=== PATIENT | female | born 1945 | race Caucasian/White ===

== ENCOUNTER 2017-06-08 16:53 | Inpatient (IN) | payer OTHER ==
--- NOTE | 2017-06-08 17:00 | PDOC ---
Rapid Medical Evaluation Chief Complaint: Rectal Bleed Time Seen by Provider: 06/08/17 17:00 Medical Evaluation: Allergies Allergy/AdvReac Type Severity Reaction Status Date / Time ciprofloxacin [From Cipro] Allergy Rash Verified 06/08/17 16:57 ciprofloxacin HCl Allergy Rash Verified 06/08/17 16:57 [From Cipro] 06/08/17 17:02 The patient presents with a chief complaint of: rectal bleeding, left abd pain I have performed a brief in-person evaluation of this patient. Pertinent physical exam findings: vss, stable I have ordered the following: labs, npo The patient will proceed to the ED for further evaluation. Discharge Disposition - Referrals Referrals: Antwan Kearns MD [Primary Care Provider] - - Patient Instructions - Post Discharge Activity
[2017-06-08 17:30] LABS: BASO % 0.2 % (0-2.0); EOS % 0.3 % (0-4.5); HEMATOCRIT 43.2 % (32.4-45.2); HEMOGLOBIN 15.1 GM/dL (10.7-15.3); LYMPH % 14.7 % (8-40); MCH 33.6 pg (25.7-33.7); MCHC 34.9 g/dl (32.0-36.0); MEAN CELL VOLUME 96.4 fl (80-96); MEAN PLT VOLUME 9.4 fl (7.5-11.1); MONO % 5.5 % (3.8-10.2); NEUT % 79.3 % (42.8-82.8); PLATELET COUNT 186 K/MM3 (134-434); RBC 4.48 M/mm3 (3.60-5.2); RDW 13.1 % (11.6-15.6); RETICULOCYTES 1.92 % (0.5-1.5); WHITE BLOOD COUNT 11.4 K/mm3 (4.0-10.0)
[2017-06-08 17:52] LABS: INR 1.03 (0.82-1.09); PROTHROMBIN TIME (PATIENT) 11.6 SEC (9.98-11.88)
[2017-06-08 18:07] LABS: ALBUMIN 4.3 g/dl (3.4-5.0); ANION GAP 8 (8-16); BILIRUBIN,TOTAL 0.3 mg/dL (0.2-1.0); BLOOD UREA NITROGEN 17 mg/dL (7-18); CHLORIDE 105 mmol/L (98-107); CO2 23 mmol/L (21-32); CREATININE 0.6 mg/dL (0.55-1.02); GLUCOSE,RANDOM 132 mg/dL (74-106); POTASSIUM 4.2 mmol/L (3.5-5.1); SGOT/AST 23 U/L (15-37); SGPT/ALT 33 U/L (12-78); SODIUM 136 mmol/L (136-145); TOT PROT 7.2 g/dl (6.4-8.2)
[2017-06-08 18:08] LABS: ALK PHOS 43 U/L (45-117)
[2017-06-08] MEDS ORDERED: SODIUM CHLORIDE 1,000 ML IV STA (19:29)
--- NOTE | 2017-06-08 19:42 | PDOC ---
History of Present Illness - General History Source: Patient, Family Exam Limitations: No Limitations - History of Present Illness Initial Comments: 06/08/17 19:55 The patient is a 71 year old female, with a significant past medical history of HTN, HLD, DM, Diverticulosis, cardiac disease who presents to the emergency department with bloody diarrhea today. Patient reports 6 episodes of bright red diarrhea this morning with intermittent LUQ abdominal pain. Patient's pain is 10 /10 in severity, radiating to midline of her abdomen. Patient notes she has been taking Naprosyn for neck pain for the past 2 days. Patient was sent to the ED by GI for further evaluation. Daughter at bedside reports patient has no hx of rectal bleeding, last colonoscopy was two years ago and reportedly negative. Patient denies recent antibiotic use. Patient denies chest pain, headache or dizziness. Patient denies fever, chills, nausea, vomit and constipation. Patient denies dysuria, frequency, urgency or hematuria. Patient denies sick contacts or recent travel. Allergies: ciprofloxacin Past surgical history: C section x2, Spinal surgery Social history: Current everyday smoker PCP: Dr. Antwan Kearns GI: Pradip <Shari Mccollum - Last Filed: 06/08/17 21:51> - General History Source: Patient, Family Exam Limitations: No Limitations <Kilo Holly - Last Filed: 06/08/17 21:55> - General Chief Complaint: Rectal Bleed Stated Complaint: BLOOD IN STOOL Time Seen by Provider: 06/08/17 17:00 Past History <Shari Mccollum - Last Filed: 06/08/17 21:51> - Past Medical History Anemia: No Asthma: No Cancer: No Cardiac Disorders: No CVA: No COPD: No CHF: No Dementia: No Diabetes: Yes GI Disorders: No Disorders: No HTN: Yes Hypercholesterolemia: Yes Liver Disease: No Seizures: No Thyroid Disease: No - Surgical History Abdominal Surgery: No Appendectomy: No Cardiac Surgery: No Cholecystectomy: No Lung Surgery: No Neurologic Surgery: No Orthopedic Surgery: Yes (RT SHOULDER ARTHROSCOPY 2004) - Immunization History Immunization Up to Date: Yes - Suicide/Smoking/Psychosocial Hx Smoking Status: Yes Smoking History: Current every day smoker Number of Cigarettes Smoked Daily: 20 Information on smoking cessation initiated: No Hx Alcohol Use: No Drug/Substance Use Hx: No Substance Use Type: None Hx Substance Use Treatment: No <Kilo Holly - Last Filed: 06/08/17 21:55> - Past Medical History Allergies/Adverse Reactions: Allergies Allergy/AdvReac Type Severity Reaction Status Date / Time ciprofloxacin [From Cipro] Allergy Rash Verified 06/08/17 16:57 ciprofloxacin HCl Allergy Rash Verified 06/08/17 16:57 [From Cipro] Home Medications: Ambulatory Orders Albuterol Sulfate Inhaler - [Ventolin HFA Inhaler -] 2 inh IH Q6H #1 inh Lisinopril 10 mg PO HS 10/27/14 Metformin HCl [Glucophage] 500 mg PO BID 10/27/14 Multivitamin [Poly-Vitamin] 1 each PO DAILY 10/27/14 Nebivolol [Bystolic -] 5 mg PO HS 10/27/14 [place]-3 Fatty Acids [[place]-3] 1,000 mg PO DAILY 10/27/14 Ranolazine [Ranexa] 500 mg PO BID 10/27/14 Simvastatin 10 mg PO DAILY 10/27/14 Acetaminophen [Tylenol] 650 mg PO Q6H PRN 01/09/15 Celecoxib [CeleBREX -] 200 mg PO DAILY #14 capsule 01/22/15 Pregabalin [Lyrica] 25 mg PO DAILY #14 capsule 01/22/15 Naproxen [Naprosyn] 500 mg PO ASDIR 06/08/17 Review of Systems - Review of Systems Able to Perform ROS?: Yes Comments:: 06/08/17 19:59 GENERAL/CONSTITUTIONAL: No fever or chills. No weakness. HEAD, EYES, EARS, NOSE AND THROAT: No change in vision. No ear pain or discharge. No sore throat. CARDIOVASCULAR: No chest pain or shortness of breath. RESPIRATORY: No cough, wheezing, or hemoptysis. GASTROINTESTINAL: + bloody diarrhea. + abdominal pain. No nausea, vomiting or constipation. GENITOURINARY: No dysuria, frequency, or change in urination. MUSCULOSKELETAL: No joint or muscle swelling or pain. No neck or back pain. SKIN: No rash NEUROLOGIC: No headache, vertigo, loss of consciousness, or change in strength/ sensation. ENDOCRINE: No increased thirst. No abnormal weight change. HEMATOLOGIC/LYMPHATIC: No anemia, easy bleeding, or history of blood clots. ALLERGIC/IMMUNOLOGIC: No hives or skin allergy. <Shari Mccollum - Last Filed: 06/08/17 21:51> *Physical Exam - Vital Signs Last Vital Signs Temp Pulse Resp BP Pulse Ox 97.9 F 60 18 142/60 98 06/08/17 16:58 06/08/17 16:58 06/08/17 16:58 06/08/17 16:58 06/08/17 16:58 - Physical Exam Comments: 06/08/17 20:00 GENERAL: Awake, alert, and fully oriented, in no acute distress HEAD: No signs of trauma EYES: PERRLA, EOMI, sclera anicteric, conjunctiva clear ENT: Auricles normal inspection, hearing grossly normal, nares patent, oropharynx clear without exudates. Moist mucosa NECK: Normal ROM, supple, no lymphadenopathy, JVD, or masses LUNGS: Breath sounds equal, clear to auscultation bilaterally. No wheezes, and no crackles HEART: Regular rate and rhythm, normal S1 and S2, no murmurs, rubs or gallops ABDOMEN: +LLQ and L mid tenderness to palpation. Soft, nontender, normoactive bowel sounds. No guarding, no rebound. No masses EXTREMITIES: Normal range of motion, no edema. No clubbing or cyanosis. No cords, erythema, or tenderness NEUROLOGICAL: Cranial nerves II through XII grossly intact. Normal speech, normal gait SKIN: Warm, Dry, normal turgor, no rashes or lesions noted. RECTAL: +Small amounts of red blood on glove. No rectal tenderness.No external hemorrhoids No fissures or tears. <Shari Mccollum - Last Filed: 06/08/17 21:51> - Vital Signs Last Vital Signs Temp Pulse Resp BP Pulse Ox 97.9 F 60 18 142/60 98 06/08/17 16:58 06/08/17 16:58 06/08/17 16:58 06/08/17 16:58 06/08/17 16:58 <Kilo Holly - Last Filed: 06/08/17 21:55> ED Treatment Course - LABORATORY CBC & Chemistry Diagram: 06/08/17 17:18 06/08/17 17:18 - ADDITIONAL ORDERS Additional order review: Laboratory Results 06/08/17 06/08/17 06/08/17 19:30 17:18 17:18 PT with INR INR Sodium 136 Potassium 4.2 Chloride 105 Carbon Dioxide 23 Anion Gap 8 BUN 17 Creatinine 0.6 Creat Clearance w eGFR > 60 Random Glucose 132 H Calcium 9.0 Total Bilirubin 0.3 D AST 23 ALT 33 Alkaline Phosphatase 43 L Total Protein 7.2 Albumin 4.3 Stool Occult Blood Positive Blood Type AB POSITIVE Antibody Screen Negative 06/08/17 17:18 PT with INR 11.60 INR 1.03 Sodium Potassium Chloride Carbon Dioxide Anion Gap BUN Creatinine Creat Clearance w eGFR Random Glucose Calcium Total Bilirubin AST ALT Alkaline Phosphatase Total Protein Albumin Stool Occult Blood Blood Type Antibody Screen 06/08/17 17:18 RBC 4.48 MCV 96.4 H MCHC 34.9 RDW 13.1 MPV 9.4 Neutrophils % 79.3 D Lymphocytes % 14.7 D Monocytes % 5.5 Eosinophils % 0.3 Basophils % 0.2 - Medications Given in the ED: ED Medications Discontinued Medications Generic Name Dose Route Start Last Admin Trade Name Freq PRN Reason Stop Dose Admin Sodium Chloride 1,000 mls @ 1,000 mls/hr 06/08/17 19:29 06/08/17 19:37 Normal Saline - IV 06/08/17 20:28 1,000 mls/hr ASDIR STA Administration <Shari Mccollum - Last Filed: 06/08/17 21:51> - LABORATORY CBC & Chemistry Diagram: 06/08/17 17:18 06/08/17 17:18 - ADDITIONAL ORDERS Additional order review: Laboratory Results 06/08/17 06/08/17 06/08/17 17:18 17:18 17:18 PT with INR 11.60 INR 1.03 Sodium 136 Potassium 4.2 Chloride 105 Carbon Dioxide 23 Anion Gap 8 BUN 17 Creatinine 0.6 Creat Clearance w eGFR > 60 Random Glucose 132 H Calcium 9.0 Total Bilirubin 0.3 D AST 23 ALT 33 Alkaline Phosphatase 43 L Total Protein 7.2 Albumin 4.3 Blood Type AB POSITIVE Antibody Screen Negative 06/08/17 17:18 RBC 4.48 MCV 96.4 H MCHC 34.9 RDW 13.1 MPV 9.4 Neutrophils % 79.3 D Lymphocytes % 14.7 D Monocytes % 5.5 Eosinophils % 0.3 Basophils % 0.2 - RADIOLOGY Radiology Studies Ordered: Category Date Time Status ABDOMEN & PELVIS CT WITH CONTR [CT] Stat CT Scan 06/08/17 19:29 Ordered <Kilo Holly - Last Filed: 06/08/17 21:55> Medical Decision Making - Medical Decision Making 06/08/17 19:41 A portion of this note was documented by scribe services under my direction. I have reviewed the details of the note, within reason, and agree with the documentation with the following case summary and management plan written by me. Patient treated in the ED. Nursing notes are reviewed and incorporated into the medical decision-making. Vital signs reviewed. Peripheral IV access obtained by the nurse, laboratory studies are drawn and sent, reviewed and interpreted by myself. Vital Signs Temp Pulse Resp BP Pulse Ox 97.9 F 60 18 142/60 98 06/08/17 16:58 06/08/17 16:58 06/08/17 16:58 06/08/17 16:58 06/08/17 16:58 71 year old female with past medical history of hypertension, diabetes, hyperlipidemia, reported heart disease presents with bloody stools. The patient reports since yesterday developing intermittent left-sided abdominal pain is crampy in nature but without any fevers, nausea or vomiting. Patient does report taking intermittent NSAIDs for her neck pain. Does not think she had taken more than usual. Today, noticed 6 episodes of blood in her stools. First- time episode. Patient had her last colonoscopy 2 years ago reportedly negative. 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 Moseley who directed patient into the emergency department for further evaluation. Differential includes bleeding diverticula, colitis, infectious versus inflammatory, less likely intussusception, abdominal mass. We'll obtain labs, stool culture and occult, abdominal/pelvis CT and reassess. 06/08/17 21:52 CBC, BMP 06/08/17 17:18 06/08/17 17:18 CMP Sodium 136 mmol/L (136-145) 06/08/17 17:18 Potassium 4.2 mmol/L (3.5-5.1) 06/08/17 17:18 Chloride 105 mmol/L (98-107) 06/08/17 17:18 Carbon Dioxide 23 mmol/L (21-32) 06/08/17 17:18 Anion Gap 8 (8-16) 06/08/17 17:18 BUN 17 mg/dL (7-18) 06/08/17 17:18 Creatinine 0.6 mg/dL (0.55-1.02) 06/08/17 17:18 Creat Clearance w eGFR > 60 (>60) 06/08/17 17:18 Random Glucose 132 mg/dL (74-106) H 06/08/17 17:18 Calcium 9.0 mg/dL (8.5-10.1) 06/08/17 17:18 Total Bilirubin 0.3 mg/dL (0.2-1.0) D 06/08/17 17:18 AST 23 U/L (15-37) 06/08/17 17:18 ALT 33 U/L (12-78) 06/08/17 17:18 Alkaline Phosphatase 43 U/L (45-117) L 06/08/17 17:18 Total Protein 7.2 g/dl (6.4-8.2) 06/08/17 17:18 Albumin 4.3 g/dl (3.4-5.0) 06/08/17 17:18 Stool occult positive. Given the multiple medical problems, will admit patient. Case discussed with [place] hospitalist, case admitted to telemetry admission. Case discussed in detail with admitting physician including history, physical exam and ancillary studies. Admitting physician has assumed care for the patient, will follow all pending diagnostics and will complete the evaluation and treatment. <Kilo Holly - Last Filed: 06/08/17 21:55> *DC/Admit/Observation/Transfer - Attestations Scribe Attestion: 06/08/17 20:00 Documentation prepared by Shari Mccollum, acting as medical supply technician for Kilo Holly MD, <Shari Mccollum - Last Filed: 06/08/17 21:51> - Discharge Dispostion Admit: Yes <Kilo Holly - Last Filed: 06/08/17 21:55> Diagnosis at time of Disposition: Colitis - Discharge Dispostion Condition at time of disposition: Stable - Referrals Referrals: Antwan Kearns MD [Primary Care Provider] - - Patient Instructions - Post Discharge Activity
[2017-06-08] MEDS ORDERED: LACTATED RINGERS SOLUTION 1,000 ML/1,000 ML INFUS.BAG IV SCH (19:45)
--- NOTE | 2017-06-08 22:12 | PN ---
Teaching Attending Note Name of Resident: Diamond Fuller ATTENDING PHYSICIAN STATEMENT I saw and evaluated the patient. I reviewed the resident's note and discussed the case with the resident. I agree with the resident's findings and plan as documented. SUBJECTIVE: 71 yo F with pmhx. of HTN, HLD, DM, Diverticulosis, Cardiac disease who presents with bloody diarrhea. States he has had 6 episodes of BR Bloody diarrhea. Also with LLQ abdominal pain. States pain is 10/10 and goes to her epsigastic area. Notes also she has been taking Naproxen for Neck pain for 48 hrs. As per daughter last [place] was 2 yeas ago, which was negative, OBJECTIVE: Physical: VS: Vital Signs Period Temp Pulse Resp BP Sys/[place] Pulse Ox Last 24 Hr 97.9 F 60 18 142/60 98 GEN: NAD, Resting in bed, AA0X3 HEENT: NCAT, PERRL, Throat without erythema or exudates CARD: RRR S1, S2 RESP: CTAB ABD: BSx4, NTD to palpation, Soft, Non-Distended EXT: - C/C/e CBCD WBC 11.4 K/mm3 (4.0-10.0) H 06/08/17 17:18 RBC 4.48 M/mm3 (3.60-5.2) 06/08/17 17:18 Hgb 15.1 GM/dL (10.7-15.3) 06/08/17 17:18 Hct 43.2 % (32.4-45.2) 06/08/17 17:18 MCV 96.4 fl (80-96) H 06/08/17 17:18 MCHC 34.9 g/dl (32.0-36.0) 06/08/17 17:18 RDW 13.1 % (11.6-15.6) 06/08/17 17:18 Plt Count 186 K/MM3 (134-434) 06/08/17 17:18 MPV 9.4 fl (7.5-11.1) 06/08/17 17:18 CMP Sodium 136 mmol/L (136-145) 06/08/17 17:18 Potassium 4.2 mmol/L (3.5-5.1) 06/08/17 17:18 Chloride 105 mmol/L (98-107) 06/08/17 17:18 Carbon Dioxide 23 mmol/L (21-32) 06/08/17 17:18 Anion Gap 8 (8-16) 06/08/17 17:18 BUN 17 mg/dL (7-18) 06/08/17 17:18 Creatinine 0.6 mg/dL (0.55-1.02) 06/08/17 17:18 Creat Clearance w eGFR > 60 (>60) 06/08/17 17:18 Random Glucose 132 mg/dL (74-106) H 06/08/17 17:18 Calcium 9.0 mg/dL (8.5-10.1) 06/08/17 17:18 Total Bilirubin 0.3 mg/dL (0.2-1.0) D 06/08/17 17:18 AST 23 U/L (15-37) 06/08/17 17:18 ALT 33 U/L (12-78) 06/08/17 17:18 Alkaline Phosphatase 43 U/L (45-117) L 06/08/17 17:18 Total Protein 7.2 g/dl (6.4-8.2) 06/08/17 17:18 Albumin 4.3 g/dl (3.4-5.0) 06/08/17 17:18 CXR: PENDING EKG: PENDING CTAP: A non-specific infectious vs. inflammatiry Colitis extending from hepatic flexure to distal descending colon, Stool Occult: + Ambulatory Orders Albuterol Sulfate Inhaler - [Ventolin HFA Inhaler -] 2 inh IH Q6H #1 inh Lisinopril 10 mg PO HS 10/27/14 Metformin HCl [Glucophage] 500 mg PO BID 10/27/14 Multivitamin [Poly-Vitamin] 1 each PO DAILY 10/27/14 Nebivolol [Bystolic -] 5 mg PO HS 10/27/14 [place]-3 Fatty Acids [[place]-3] 1,000 mg PO DAILY 10/27/14 Ranolazine [Ranexa] 500 mg PO BID 10/27/14 Simvastatin 10 mg PO DAILY 10/27/14 Acetaminophen [Tylenol] 650 mg PO Q6H PRN 01/09/15 Celecoxib [CeleBREX -] 200 mg PO DAILY #14 capsule 01/22/15 Pregabalin [Lyrica] 25 mg PO DAILY #14 capsule 01/22/15 Naproxen [Naprosyn] 500 mg PO ASDIR 06/08/17 ASSESSMENT AND PLAN: 71 yo F with pmhx. of HTN, HLD, DM, Diverticulosis, Cardiac disease who presents with bloody diarrhea, being admitted for Colitis. 1.) Colitis/LGIB - Type & Screen - CBC Q 8 - Transfuse Hgb<7 - Coags - Infectious/Inflammatory - Would hold off abx. - Stool Cx - IVF - NPO - GI Consult - Hold Celebrex/Naproxen 2.) HTN - Hold home meds for now 3.) DM - FS - D5 1/2 NS - RAISS 4.) CAD? - EKG and CXR - C/W Ranexa 5.) Dvt Ppx - SCDS Place in Med- Tele
[2017-06-08] MEDS ORDERED: ACETAMINOPHEN 1000 MG/100 ML VIAL (NON FORMULARY) IVPB ONE (22:19)
[2017-06-08] MEDS ORDERED: morphine CARPU-JECT 2 MG/1 ML DISP.SYRIN IVPUSH ONE (22:19)
[2017-06-08] MEDS ORDERED: ACETAMINOPHEN INJECTION 100 ML IVPB ONE (22:55)
[2017-06-08] MEDS ORDERED: MORPHINE SULFATE 10 MG/1 ML *VIAL ONE (22:55)
--- NOTE | 2017-06-08 23:12 | HP ---
CHIEF COMPLAINT: bloody diarrhea x 1 day PCP: Dr. Antwan Kearns HISTORY OF PRESENT ILLNESS: 71 y/o F with PMH HTN, HLD, DM, diverticulosis, CAD (has never had a CABG, without stents), on baby aspirin 81mg qd, who presents to the ED c/o bloody diarrhea over the past day. As per pt, this morning, she noticed BRB mixed in with brown stool when she used the bathroom. Throughout the course of the day, she noticed an increase in blood mixed in with her stool. Her diarrhea was a/w LLQ pain that was 8/10, and initially constant. Currently it is intermittent, without radiation. Pt's pain was mildly alleviated with a tablet [place] from [place], however the blood persisted. Pt does not endorse any significant weight or diet changes. She eats balanced meals that include "many fruits and vegetables," however she does note that she may have eaten different foods during . At this time, she was also around many young relatives. Pt has used naproxen over the past two days for arthritic neck pain. She states that she did not take it with food, as she was supposed to, and noticed the blood in her BM afterward. Pt also endorses subjective chills. She denies TATE, fever, SOB, N/V, recent travel, chest pain or pressure, or changes in urinary function. She follows with Dr. Moseley routinely, and had a colonoscopy last done two years ago which was WNL. Pt is allergic to ciprofloxacin. ER course was notable for: (1) LR fluids (2) Morphine 2mg IVP x 1 (3) IV Tylenol 1g x 1 Recent Travel: none PAST MEDICAL HISTORY: as above PAST SURGICAL HISTORY: x 2, R shoulder arthroscopy - 2004, R knee surgery, three discs - neck Social History: Smoking: +current active smoker. smokes 1/2 pack ppd, does not know for how many years Alcohol: socially Drugs: denies Family History: sister- colon CA, brother- stomach CA, mother and father- DM Allergies ciprofloxacin [From Cipro] Allergy (Verified 06/08/17 16:57) Rash, edema, pruritis ciprofloxacin HCl [From Cipro] Allergy (Verified 06/08/17 16:57) Rash HOME MEDICATIONS: Home Medications Medication Instructions Recorded Albuterol Sulfate Inhaler - 2 inh IH Q6H #1 inh 10/27/14 [Ventolin HFA Inhaler -] Lisinopril 10 mg PO HS 10/27/14 Metformin HCl [Glucophage] 500 mg PO BID 10/27/14 Multivitamin [Poly-Vitamin] 1 each PO DAILY 10/27/14 Nebivolol [Bystolic -] 5 mg PO HS 10/27/14 [place]-3 Fatty Acids [[place]-3] 1,000 mg PO DAILY 10/27/14 Ranolazine [Ranexa] 500 mg PO BID 10/27/14 Simvastatin 10 mg PO DAILY 10/27/14 Acetaminophen [Tylenol] 650 mg PO Q6H PRN 01/09/15 Celecoxib [CeleBREX -] 200 mg PO DAILY #14 capsule 01/22/15 Pregabalin [Lyrica] 25 mg PO DAILY #14 capsule 01/22/15 Naproxen [Naprosyn] 500 mg PO ASDIR 06/08/17 REVIEW OF SYSTEMS CONSTITUTIONAL: +subjective chills Absent: fever, diaphoresis, generalized weakness, malaise, loss of appetite, weight change HEENT: Absent: rhinorrhea, nasal congestion, throat pain, throat swelling, difficulty swallowing, mouth swelling, ear pain, eye pain, visual changes CARDIOVASCULAR: Absent: chest pain, syncope, palpitations, irregular heart rate, lightheadedness , peripheral edema RESPIRATORY: Absent: cough, shortness of breath, dyspnea with exertion, orthopnea, wheezing, stridor, hemoptysis GASTROINTESTINAL: +abdominal pain, diarrhea, melena Absent: abdominal distension, nausea, vomiting, constipation, hematochezia GENITOURINARY: Absent: dysuria, frequency, urgency, hesitancy, hematuria, flank pain, genital pain MUSCULOSKELETAL: Absent: myalgia, arthralgia, joint swelling, back pain, neck pain SKIN: Absent: rash, itching, pallor HEMATOLOGIC/IMMUNOLOGIC: Absent: easy bleeding, easy bruising, lymphadenopathy, frequent infections ENDOCRINE: Absent: unexplained weight gain, unexplained weight loss, heat intolerance, cold intolerance NEUROLOGIC: Absent: headache, focal weakness or paresthesias, dizziness, unsteady gait, seizure, mental status changes, bladder or bowel incontinence PSYCHIATRIC: Absent: anxiety, depression, suicidal or homicidal ideation, hallucinations. PHYSICAL EXAMINATION Vital Signs - 24 hr 06/08/17 16:58 Temperature 97.9 F Pulse Rate 60 Respiratory 18 Rate Blood Pressure 142/60 O2 Sat by Pulse 98 Oximetry (%) GENERAL: Resting comfortably. Awake, alert, and fully oriented, in no acute distress. HEAD: Normal with no signs of trauma. EYES: Pupils equal, round and reactive to light, extraocular movements intact, sclera anicteric, conjunctiva clear. EARS, NOSE, THROAT: Ears normal, nares patent, oropharynx clear without exudates. Moist mucous membranes. NECK: Mild decreased active and passive ROM d/t neck arthritis. LUNGS: Breath sounds equal, clear to auscultation bilaterally. No wheezes, and no crackles. No accessory muscle use. HEART: Regular rate and rhythm, normal S1 and S2 with +MR. No rubs or gallops appreciated. ABDOMEN: Soft, +TTP LLQ, not distended, normoactive bowel sounds, no guarding, no rebound, no masses LOWER EXTREMITIES: 2+ dorsalis pedis pulses, warm, well-perfused. No calf tenderness. No peripheral edema. NEUROLOGICAL: Cranial nerves II-XII intact. Laboratory Results 06/08/17 06/08/17 06/08/17 17:18 17:18 17:18 WBC 11.4 H RBC 4.48 Hgb 15.1 Hct 43.2 MCV 96.4 H MCH 33.6 MCHC 34.9 RDW 13.1 Plt Count 186 MPV 9.4 Neutrophils % 79.3 D Lymphocytes % 14.7 D Monocytes % 5.5 Eosinophils % 0.3 Basophils % 0.2 Retic Count 1.92 H PT with INR 11.60 INR 1.03 Sodium 136 Potassium 4.2 Chloride 105 Carbon Dioxide 23 Anion Gap 8 BUN 17 Creatinine 0.6 Creat Clearance w eGFR > 60 Random Glucose 132 H Calcium 9.0 Total Bilirubin 0.3 D AST 23 ALT 33 Alkaline Phosphatase 43 L Total Protein 7.2 Albumin 4.3 06/08/17 06/08/17 17:18 19:30 Stool Occult Blood Positive Blood Type AB POSITIVE Antibody Screen Negative TESTS -EKG: pending -Abdominal/pelvis CT with contrast: infectious vs. inflammatory colitis from hepatic flexure to distal descending colon ASSESSMENT/PLAN: 71 y/o F with PMH HTN, HLD, DM, diverticulosis, CAD (has never had a CABG, without stents), on baby aspirin 81mg qd, who presents to the ED c/o bloody diarrhea over the past day. Pt admitted to telemetry for infectious vs. inflammatory colitis. #Infectious vs. inflammatory colitis -Pt currently without sepsis - afebrile, with mild white count 11.4 -Etiology possible UC, Crohn's, C.diff, salmonella, shigella, CMV, parasitic- less likely no recent travel -As without sepsis, will wait and watch for now off abx -Received IV LR in ED -NPO -IV NS 100 cc/hr -F/u C. diff toxin, stool cx -F/u EKG - in case pt needs Levaquin or other QT prolonging abx -GI consult- Dr. Moseley #Bloody diarrhea likely 2/2 colitis -Current H&H stable 15.1/43.2 -Continue to follow CBC q8h -Transfuse if Hb<7 -Has type and screen done, good for 72 hrs -F/u PTT, PT/INR -Telemetry monitoring -NPO -Will hold home meds cerebrex, naproxen -Avoid NSAIDs* #CAD -Continue ranexa 500mg PO BID #HTN- controlled -Will hold lisinopril 10mg PO q and nebivolol 5mg PO qd #HLD -Continue lipitor 10mg PO qd #DM -BGM -ISS ACHS #F/E/N IV NS 100 cc/hr Serial lytes NPO #Dispo Continued monitoring on telemetry will need med rec in AM when pharmacy open Visit type - Emergency Visit Emergency Visit: Yes ED Registration Date: 06/08/17 Care time: The patient presented to the Emergency Department on the above date and was hospitalized for further evaluation of their emergent condition. - New Patient This patient is new to me today: Yes Date on this admission: 06/09/17 - Critical Care Critical Care patient: No Hospitalist Screening - Colonoscopy Questionnaire Colonoscopy Questionnaire: Colonoscopy Questionnaire - Patient: 50 - 75 years old and never had a screening colonoscopy: Unknown History of colon or rectal polyps, or CA: Unknown History of IBD, Crohn's disease or UC: Unknown History of abdominal radiation therapy as a child: Unknown - Relative: 1 with colon or rectal CA, or polyps at age 60 or younger: Unknown Colon or rectal CA diagnosed at age 45 or younger: Unknown Multiple relatives with colon or rectal CA: Unknown - Outcome: Screening Result: Negative Screen
[2017-06-08] MEDS ORDERED: SODIUM CHLORIDE 1,000 ML IV SCH (23:15)
[2017-06-09] MEDS: INSULIN SLIDING SCALE (NOVOLOG) 1 VIAL SQ SCH ×6 (03:22→21:26)
[2017-06-09 04:28] VITALS: BMI 33.0
[2017-06-09 06:47] LABS: BASO % 0.2 % (0-2.0); EOS % 1.4 % (0-4.5); HEMATOCRIT 39.9 % (32.4-45.2); HEMOGLOBIN 14.2 GM/dL (10.7-15.3); LYMPH % 31.6 % (8-40); MCH 34.4 pg (25.7-33.7); MCHC 35.7 g/dl (32.0-36.0); MEAN CELL VOLUME 96.5 fl (80-96); MEAN PLT VOLUME 9.6 fl (7.5-11.1); MONO % 7.4 % (3.8-10.2); NEUT % 59.4 % (42.8-82.8); PLATELET COUNT 178 K/MM3 (134-434); RBC 4.13 M/mm3 (3.60-5.2); RDW 13.3 % (11.6-15.6); WHITE BLOOD COUNT 9.6 K/mm3 (4.0-10.0)
[2017-06-09 06:55] LABS: INR 1.05 (0.82-1.09); PROTHROMBIN TIME (PATIENT) 11.9 SEC (9.98-11.88)
[2017-06-09 06:58] LABS: ACTIVATED PTT 30.5 SECONDS (26.9-34.4)
[2017-06-09] MEDS ORDERED: INSULIN SLIDING SCALE (NOVOLOG) 1 VIAL SQ SCH (07:00)
[2017-06-09 07:32] LABS: CHLORIDE 107 mmol/L (98-107); POTASSIUM 3.5 mmol/L (3.5-5.1); SODIUM 141 mmol/L (136-145)
[2017-06-09 07:44] LABS: ANION GAP 10 (8-16); BLOOD UREA NITROGEN 12 mg/dL (7-18); CALCIUM 8.6 mg/dL (8.5-10.1); CO2 24 mmol/L (21-32); CREATININE 0.6 mg/dL (0.55-1.02); GLUCOSE,RANDOM 125 mg/dL (74-106); MAGNESIUM 1.8 mg/dL (1.8-2.4); PHOSPHOROUS 4.4 mg/dL (2.5-4.9)
--- NOTE | 2017-06-09 10:07 | EKG ---
Test Reason : Blood Pressure : / mmHG Vent. Rate : 049 BPM Atrial Rate : 049 BPM P-R Int : 142 ms QRS Dur : 078 ms QT Int : 454 ms P-R-T Axes : 025 008 041 degrees QTc Int : 410 ms SINUS BRADYCARDIA WITH MARKED SINUS ARRHYTHMIA OTHERWISE NORMAL ECG WHEN COMPARED WITH ECG OF 27-OCT-2014 03:10, NO SIGNIFICANT CHANGE WAS FOUND Confirmed by Alexander York MD ([id number]) on 06/09/2017 10:07:46 AM Referred By: Confirmed By:Alexander York MD
[2017-06-09] MEDS: PREGABALIN 25 MG CAPSULE PO SCH (10:23)
[2017-06-09] MEDS: RANOLAZINE E.R. 500 MG TABLET (FP) PO SCH ×2 (10:23→21:26)
[2017-06-09 14:58] LABS: HEMATOCRIT 39.8 % (32.4-45.2); HEMOGLOBIN 14.1 GM/dL (10.7-15.3); MCH 34.3 pg (25.7-33.7); MCHC 35.3 g/dl (32.0-36.0); MEAN CELL VOLUME 97.2 fl (80-96); MEAN PLT VOLUME 9.7 fl (7.5-11.1); PLATELET COUNT 158 K/MM3 (134-434); RDW 13.3 % (11.6-15.6); WHITE BLOOD COUNT 10.2 K/mm3 (4.0-10.0)
--- NOTE | 2017-06-09 16:11 | PN ---
Progress Note, Physician Chief Complaint: awake alert family bedside events and notes reviewed - Current Medication List Current Medications: Active Medications Atorvastatin Calcium (Lipitor -) 10 mg PO HS [facility] Sodium Chloride (Normal Saline -) 1,000 mls @ 100 mls/hr IV ASDIR [facility] Last Admin: 06/09/17 03:25 Dose: Not Given Metronidazole (Flagyl 500mg Premixed Ivpb -) 500 mg in 100 mls @ 100 mls/hr IVPB Q8H-IV [facility] Last Admin: 06/09/17 10:23 Dose: 100 mls/hr Insulin Aspart (Novolog Vial Sliding Scale -) 1 vial SQ Q4HPO [facility] PRN Reason: Protocol Last Admin: 06/09/17 14:31 Dose: Not Given Lisinopril (Prinivil) 10 mg PO HS [facility]KA Nebivolol (Bystolic -) 5 mg PO HS [facility] Pregabalin (Lyrica -) 25 mg PO DAILY [facility] Last Admin: 06/09/17 10:23 Dose: 25 mg Ranolazine (Ranexa -) 500 mg PO BID [facility] Last Admin: 06/09/17 10:23 Dose: 500 mg - Objective Vital Signs: Vital Signs Temperature 98.6 F 06/09/17 15:58 Pulse Rate 53 L 06/09/17 15:58 Respiratory Rate 20 06/09/17 15:58 Blood Pressure 113/59 06/09/17 15:58 O2 Sat by Pulse Oximetry (%) 98 06/09/17 09:00 Constitutional: Yes: Mild Distress Eyes: Yes: WNL HENT: Yes: WNL Neck: Yes: WNL Cardiovascular: Yes: Bradycardia Respiratory: Yes: WNL Gastrointestinal: Yes: Tenderness Genitourinary: Yes: WNL Musculoskeletal: Yes: WNL Extremities: Yes: WNL Edema: No Peripheral Pulses WNL: Yes Integumentary: Yes: WNL Wound/Incision: Yes: Clean/Dry Neurological: Yes: WNL ...Motor Strength: WNL Psychiatric: Yes: WNL Labs: CBC, BMP 06/09/17 14:10 06/09/17 06:25 INR, PTT INR 1.05 (0.82-1.09) 06/09/17 06:25 Problem List - Problems (1) Bradycardia Code(s): R00.1 - BRADYCARDIA, UNSPECIFIED (2) Colitis Code(s): K52.9 - NONINFECTIVE GASTROENTERITIS AND COLITIS, UNSPECIFIED Assessment/Plan GI AND CARDIO EVAL FLAGYLL IV NPO IVF DVT PROPHYLAXIS STOOL CX
[2017-06-09] MEDS: PANTOPRAZOLE SODIUM 40 MG VIAL IVPUSH SCH (16:53)
[2017-06-09] MEDS: ATORVASTATIN CA 10 MG TABLET (FP) PO SCH (21:26)
[2017-06-09] MEDS ORDERED: NEBIVOLOL 5 MG TABLET (FP) PO SCH (22:00)
[2017-06-09] MEDS ORDERED: LISINOPRIL 10 MG TABLET (FP) PO SCH (22:00)
[2017-06-10] MEDS: INSULIN SLIDING SCALE (NOVOLOG) 1 VIAL SQ SCH ×6 (02:00→21:25)
[2017-06-10 07:31] LABS: HEMATOCRIT 38.8 % (32.4-45.2); HEMOGLOBIN 13.9 GM/dL (10.7-15.3); MCH 34.4 pg (25.7-33.7); MCHC 35.9 g/dl (32.0-36.0); MEAN CELL VOLUME 95.8 fl (80-96); MEAN PLT VOLUME 9.7 fl (7.5-11.1); PLATELET COUNT 158 K/MM3 (134-434); RBC 4.05 M/mm3 (3.60-5.2); RDW 12.9 % (11.6-15.6); WHITE BLOOD COUNT 10.8 K/mm3 (4.0-10.0)
[2017-06-10 08:03] LABS: CHLORIDE 106 mmol/L (98-107); POTASSIUM 3.6 mmol/L (3.5-5.1); SODIUM 143 mmol/L (136-145)
[2017-06-10 08:11] LABS: ANION GAP 11 (8-16); BLOOD UREA NITROGEN 10 mg/dL (7-18); CALCIUM 8.7 mg/dL (8.5-10.1); CO2 26 mmol/L (21-32); CREATININE 0.6 mg/dL (0.55-1.02); GLUCOSE,RANDOM 122 mg/dL (74-106)
[2017-06-10] MEDS: PANTOPRAZOLE SODIUM 40 MG VIAL IVPUSH SCH (10:40)
[2017-06-10] MEDS: RANOLAZINE E.R. 500 MG TABLET (FP) PO SCH ×2 (10:41→21:24)
[2017-06-10] MEDS: PREGABALIN 25 MG CAPSULE PO SCH (10:41)
--- NOTE | 2017-06-10 11:06 | PN ---
Progress Note, Physician Chief Complaint: AWAKE ALERT STILL HAS ABD PAIN WITH DIARRHEA - Current Medication List Current Medications: Active Medications Atorvastatin Calcium (Lipitor -) 10 mg PO HS [facility] Last Admin: 06/09/17 21:26 Dose: 10 mg Metronidazole (Flagyl 500mg Premixed Ivpb -) 500 mg in 100 mls @ 100 mls/hr IVPB Q8H-IV [facility] Last Admin: 06/10/17 10:41 Dose: 100 mls/hr Insulin Aspart (Novolog Vial Sliding Scale -) 1 vial SQ Q4HPO [facility] PRN Reason: Protocol Last Admin: 06/10/17 06:10 Dose: Not Given Lisinopril (Prinivil) 10 mg PO HS [facility] Nebivolol (Bystolic -) 5 mg PO HS [facility] Pantoprazole Sodium (Protonix Iv) 40 mg IVPUSH DAILY [facility] Last Admin: 06/10/17 10:40 Dose: 40 mg Pregabalin (Lyrica -) 25 mg PO DAILY [facility] Last Admin: 06/10/17 10:41 Dose: 25 mg Ranolazine (Ranexa -) 500 mg PO BID [facility] Last Admin: 06/10/17 10:41 Dose: 500 mg - Objective Vital Signs: Vital Signs Temperature 98.4 F 06/10/17 05:00 Pulse Rate 51 L 06/10/17 05:00 Respiratory Rate 18 06/10/17 01:00 Blood Pressure 122/49 06/10/17 05:00 O2 Sat by Pulse Oximetry (%) 100 06/09/17 20:24 Constitutional: Yes: Mild Distress Eyes: Yes: WNL HENT: Yes: WNL Neck: Yes: WNL Cardiovascular: Yes: WNL Respiratory: Yes: WNL Gastrointestinal: Yes: Tenderness Genitourinary: Yes: WNL Musculoskeletal: Yes: WNL Extremities: Yes: WNL Edema: No Peripheral Pulses WNL: Yes Integumentary: Yes: WNL Wound/Incision: Yes: Clean/Dry Neurological: Yes: WNL ...Motor Strength: WNL Psychiatric: Yes: Other Labs: CBC, BMP 06/10/17 07:04 06/10/17 07:04 INR, PTT INR 1.05 (0.82-1.09) 06/09/17 06:25 Problem List - Problems (1) Bradycardia Code(s): R00.1 - BRADYCARDIA, UNSPECIFIED (2) Colitis Code(s): K52.9 - NONINFECTIVE GASTROENTERITIS AND COLITIS, UNSPECIFIED Assessment/Plan IV FLAGYL FOR 24 HOURS MORE CLEAR DIET ESR NORMAL CRP ELEVATED SLIGHTLY GI CONSULT OOB TO CHAIR
--- NOTE | 2017-06-10 15:15 | CON.CARD ---
Consult Consult Specialty:: Cardiology Referred by:: Dr Mcfadden Reason for Consultation:: cad bradycardia - History of Present Illness Chief Complaint: brbpr History of Present Illness: 71 y/o F with PMH HTN, HLD, DM, diverticulosis, CAD managed medically, on baby aspirin, who presents to the ED c/o bloody diarrhea over the past day. She denies chest pain, sob, orthopnea, pnd, edema, palpitations, dizziness or syncope. Baseline exercise tolerance is good. She was noted with sinus bradycardia, now improved on telemetry. - History Source History Provided By: Patient, Medical Record - Alcohol/Substance Use Hx Alcohol Use: No - Smoking History Smoking history: Current every day smoker Aproximately how many cigarettes per day: 20 Home Medications - Allergies Allergies/Adverse Reactions: Allergies Allergy/AdvReac Type Severity Reaction Status Date / Time ciprofloxacin [From Cipro] Allergy Rash Verified 06/08/17 16:57 ciprofloxacin HCl Allergy Rash Verified 06/08/17 16:57 [From Cipro] - Home Medications Home Medications: Ambulatory Orders Albuterol Sulfate Inhaler - [Ventolin HFA Inhaler -] 2 inh IH Q6H #1 inh Lisinopril 10 mg PO HS 10/27/14 Metformin HCl [Glucophage] 500 mg PO BID 10/27/14 Multivitamin [Poly-Vitamin] 1 each PO DAILY 10/27/14 Nebivolol [Bystolic -] 5 mg PO HS 10/27/14 [place]-3 Fatty Acids [[place]-3] 1,000 mg PO DAILY 10/27/14 Ranolazine [Ranexa] 500 mg PO BID 10/27/14 Simvastatin 10 mg PO DAILY 10/27/14 Acetaminophen [Tylenol] 650 mg PO Q6H PRN 01/09/15 Celecoxib [CeleBREX -] 200 mg PO DAILY #14 capsule 01/22/15 Pregabalin [Lyrica] 25 mg PO DAILY #14 capsule 01/22/15 Naproxen [Naprosyn] 500 mg PO ASDIR 06/08/17 Review of Systems - Review of Systems Constitutional: reports: No Symptoms Eyes: reports: No Symptoms HENT: reports: No Symptoms Neck: reports: No Symptoms Cardiovascular: reports: No Symptoms Respiratory: reports: No Symptoms Vital Signs: Vital Signs Temperature 97.6 F 06/10/17 13:54 Pulse Rate 48 L 06/10/17 13:54 Respiratory Rate 20 06/10/17 13:54 Blood Pressure 107/58 06/10/17 13:54 O2 Sat by Pulse Oximetry (%) 100 06/09/17 20:24 Constitutional: Yes: No Distress, Calm Eyes: Yes: Conjunctiva Clear, EOM Intact HENT: Yes: Atraumatic, Normocephalic Neck: Yes: Trachea Midline Respiratory: Yes: CTA Bilaterally Gastrointestinal: Yes: Normal Bowel Sounds, Soft Renal/: Yes: WNL Cardiovascular: Yes: Regular Rate and Rhythm Musculoskeletal: Yes: WNL Extremities: Yes: WNL Edema: No Peripheral Pulses WNL: Yes - Other Data Labs, Other Data: CBC, BMP 06/10/17 07:04 06/10/17 07:04 INR, PTT INR 1.05 (0.82-1.09) 06/09/17 06:25 Imaging - Results EKG: Report Reviewed (sbrady no st or t wave changes.) Problem List - Problems (1) Bradycardia Assessment/Plan: Nebivolol can cause some bradycardia despite the reputation of having no heart rate effects, it is a beta michel. However, she is not bradycardic all the time, mainly when resting and seems to be able to increase her heart rate when she is out of bed walking. Would not pursue cardiac workup at this time. This is a benign entity. She is stable for GI workup from a cardiac standpoint. No need for aspirin at this point. Continue Ranexa, has no effect on BP or HR. will see prn. Code(s): R00.1 - BRADYCARDIA, UNSPECIFIED
--- NOTE | 2017-06-10 19:14 | CON.GI ---
Consult Consult Specialty:: GI Referred by:: Dr Mcfadden Reason for Consultation:: bllody diarrhea - History of Present Illness History of Present Illness: Patient was seen last night and today,. She denies abdominal pain and diarrhea has improved, now has frequent soft stool. Non bloody. No stools collected. She received several doses of Flagyl which provided partial relief of her symptoms. - History Source History Provided By: Patient - Alcohol/Substance Use Hx Alcohol Use: No - Smoking History Smoking history: Current every day smoker Aproximately how many cigarettes per day: 20 Home Medications - Allergies Allergies/Adverse Reactions: Allergies Allergy/AdvReac Type Severity Reaction Status Date / Time ciprofloxacin [From Cipro] Allergy Rash Verified 06/08/17 16:57 ciprofloxacin HCl Allergy Rash Verified 06/08/17 16:57 [From Cipro] - Home Medications Home Medications: Ambulatory Orders Albuterol Sulfate Inhaler - [Ventolin HFA Inhaler -] 2 inh IH Q6H #1 inh Lisinopril 10 mg PO HS 10/27/14 Metformin HCl [Glucophage] 500 mg PO BID 10/27/14 Multivitamin [Poly-Vitamin] 1 each PO DAILY 10/27/14 Nebivolol [Bystolic -] 5 mg PO HS 10/27/14 [place]-3 Fatty Acids [[place]-3] 1,000 mg PO DAILY 10/27/14 Ranolazine [Ranexa] 500 mg PO BID 10/27/14 Simvastatin 10 mg PO DAILY 10/27/14 Acetaminophen [Tylenol] 650 mg PO Q6H PRN 01/09/15 Celecoxib [CeleBREX -] 200 mg PO DAILY #14 capsule 01/22/15 Pregabalin [Lyrica] 25 mg PO DAILY #14 capsule 01/22/15 Naproxen [Naprosyn] 500 mg PO ASDIR 06/08/17 Physical Exam-GI Vital Signs: Vital Signs Temperature 97.6 F 06/10/17 13:54 Pulse Rate 48 L 06/10/17 13:54 Respiratory Rate 20 06/10/17 13:54 Blood Pressure 107/58 06/10/17 13:54 O2 Sat by Pulse Oximetry (%) 98 06/10/17 09:00 Constitutional: Yes: Obese Eyes: Yes: Conjunctiva Clear HENT: Yes: Atraumatic Neck: Yes: Supple Cardiovascular: Yes: Regular Rate and Rhythm Respiratory: Yes: CTA Bilaterally ...Palpate: Yes: Soft. No: Firm/Rigid, Guarding, Hepatomegaly, Mass, Pulsatile Mass, Splenomegaly, Tenderness Labs: CBC, BMP 06/10/17 07:04 06/10/17 07:04 INR, PTT INR 1.05 (0.82-1.09) 06/09/17 06:25 Problem List - Problems (1) Colitis Assessment/Plan: r/o viral vs bacterial R> advance diet Flagyl 250mg tid for 2 weeks further gi w/u as an outpatient she was made aware to follow-up Code(s): K52.9 - NONINFECTIVE GASTROENTERITIS AND COLITIS, UNSPECIFIED
[2017-06-10] MEDS: ATORVASTATIN CA 10 MG TABLET (FP) PO SCH (21:24)
[2017-06-11] MEDS: INSULIN SLIDING SCALE (NOVOLOG) 1 VIAL SQ SCH ×2 (02:16→06:21)
[2017-06-11] MEDS: RANOLAZINE E.R. 500 MG TABLET (FP) PO SCH (09:33)
[2017-06-11] MEDS: PANTOPRAZOLE SODIUM 40 MG VIAL IVPUSH SCH (09:33)
[2017-06-11] MEDS: PREGABALIN 25 MG CAPSULE PO SCH (09:33)
[2017-06-11 13:06] VITALS: BP 124/46; PULSE 58; TEMP 97.7
== END 2017-06-11 13:14 | disposition home or self-care (01) | DRG 392 ==
LOC: JER 16:53 → JERBED 21:55 → J4W 06-09 04:02
PROVIDERS: ADMIT Internal Medicine; ATTEND Family Medicine
DX: K52.9 Noninfective gastroenteritis and colitis, unspecified (principal); K92.2 Gastrointestinal hemorrhage, unspecified; R00.1 Bradycardia, unspecified; F17.210 Nicotine dependence, cigarettes, uncomplicated; I10 Essential (primary) hypertension; E78.5 Hyperlipidemia, unspecified; E11.9 Type 2 diabetes mellitus without complications; I25.10 Atherosclerotic heart disease of native coronary artery without angina pectoris; K57.90 Diverticulosis of intestine, part unspecified, without perforation or abscess without bleeding
CPT/HCPCS: 36415; 74177-TC; 80048; 80053; 82272; 82962; 83735; 84100; 85025; 85027; 85044; 85610; 85651; 85730; 86140; 86850; 86900; 86901; 93005; 93010; 99284-25; J0131; J7030

== ENCOUNTER → 2022-08-07 | Day surgery (SDC) | payer OTHER, MEDICARE | END | disposition home or self-care (01) | LOC: FMAMMOTONE 10:07 | PROVIDERS: ATTEND Specialist | PROC: 0HBU3ZX Excision of Left Breast, Percutaneous Approach, Diagnostic (ICD-10-PCS; principal; 2022-08-07) | DX: N60.22 Fibroadenosis of left breast (principal); N64.89 Other specified disorders of breast; R92.0 Mammographic microcalcification found on diagnostic imaging of breast | CPT/HCPCS: 19081; 76098-TC-FY; 87899; 88305-TC; A4648 ==